=== PATIENT | female | born 2005 | race Caucasian/White ===

== ENCOUNTER 2024-03-13 12:52 | Emergency (ER) | payer OTHER ==
[~2024-03-13] VITALS: Ht 167.6 cm; Wt 54.5 kg
[2024-03-13 12:57] VITALS: TEMP 98.7
[2024-03-13 13:12] LABS: BASO % 0.5 % (0.0-2.0); EOS # 0.2 K/mm3 (0.0-0.7); EOS % 3.1 % (0.0-4.0); GRAN # 3.7 K/mm3 (1.4-6.5); GRAN % 49.2 % (42.2-75.2); HEMATOCRIT 44.8 % (35.0-45.0); HEMOGLOBIN 15.2 g/dl (12.0-15.0); LYMPH # 2.4 K/mm3 (1.2-3.4); LYMPH % 32.3 % (20.0-51.0); MEAN CELL VOLUME 90 fl (80.0-95.0); MEAN CORPUSCULAR HEMOGLOBIN 31 pg (26-32); MEAN CORPUSCULAR HGB CONC 34 g/dl (33.0-37.0); MEAN PLATELET VOLUME 10.3 fl (7.4-10.4); MONO # 1.1 K/mm3 (0.1-0.6); MONO % 14.8 % (1.7-9.3); PLATELET COUNT 274 K/mm3 (130-400); RED BLOOD COUNT 4.96 M/mm3 (4.10-5.30); REDCELL DISTRIBUTION WIDTH-CV 12.4 % (11.5-14.5)
[2024-03-13] MEDS ORDERED: NS 1,000 ML IV ONE (13:30)
[2024-03-13 13:32] LABS: ALANINE AMINOTRANSFERASE 20 U/L (0-55); ALBUMIN 4.3 g/dL (3.5-5.0); ANION GAP 15 mmol/L (7-16); AST,SGOT 25 U/L (5-34); BILIRUBIN,TOTAL 0.3 mg/dL (0.2-1.2); BLOOD UREA NITROGEN 8 mg/dL (7-19); CALCIUM 9.9 mg/dL (8.4-10.2); CHLORIDE 107 mEq/L (98-107); CREATININE, serum 0.78 mg/dL (0.57-1.11); GLUCOSE 94 mg/dL (70-99); POTASSIUM 3.2 mEq/L (3.5-4.5); SODIUM 138 mEq/L (136-145); TOTAL PROTEIN 7.8 g/dl (6.2-8.1)
[2024-03-13 13:34] LABS: ALKALINE PHOSPHATASE 46 U/L (40-150)
[2024-03-13 14:05] LABS: TROPONIN-I < 0.010 ng/mL (0.00-0.033)
[2024-03-13] MEDS ORDERED: Iohexol 300 - 100 ML VIAL IV ONE (14:51)
[2024-03-13] MEDS ORDERED: NS 100 ML IV SCH (14:58)
[2024-03-13] MEDS ORDERED: ZITHROMAX Z PA250 MG PO (15:44)
[2024-03-13] MEDS ORDERED: OMNICEF 300MG300 MG PO (15:44)
[2024-03-13] MEDS ORDERED: Cefdinir 300 MG CAP PO ONE (15:45)
[2024-03-13 16:05] VITALS: BP 119/84; PULSE 95
== END 2024-03-13 16:05 | disposition home or self-care (01) ==
LOC: COL.ER 12:52
PROVIDERS: Physician Assistant
DX: J18.9 Pneumonia, unspecified organism (principal)
CPT/HCPCS: J7030; Q9967